=== PATIENT | female | born 2000 | race Two or more races ===

== ENCOUNTER 2019-10-09 13:15 | Observation (INO) | payer MEDICAID, OTHER ==
[~2019-10-09] VITALS: Ht 147.3 cm; Wt 62.6 kg
[2019-10-09] MEDS ORDERED: PREN-96 PO (13:28)
== END 2019-10-09 14:20 | disposition home or self-care (01) | DRG 563 ==
LOC: LDRP 13:15
PROVIDERS: ADMIT Specialist; ATTEND Specialist
DX: O60.03 Preterm labor without delivery, third trimester (principal); O62.9 Abnormality of forces of labor, unspecified; Z3A.31 31 weeks gestation of pregnancy
CPT/HCPCS: 59025; 81002; G0378

== ENCOUNTER 2019-11-26 13:40 | Observation (INO) | payer MEDICAID ==
[~2019-11-26 13:40] MED LIST: PREN-96 PO
== END 2019-11-26 15:02 | disposition home or self-care (01) | DRG 566 ==
LOC: LDRP 13:40
PROVIDERS: ADMIT Specialist; ATTEND Specialist
DX: O62.9 Abnormality of forces of labor, unspecified (principal); Z3A.38 38 weeks gestation of pregnancy
CPT/HCPCS: 59025; 81002; G0378